=== PATIENT | female | born 1975 | race Caucasian/White ===

== ENCOUNTER 2018-08-30 12:12 | Emergency (ER) | payer SELFPAY ==
[2018-08-30] MEDS ORDERED: Morphine 4 MG/ML VIAL ONE (12:59)
--- NOTE | 2018-08-30 13:13 | RAD ---
RIGHT ELBOW 4 VIEWS: Date: 08/30/18 HISTORY: Fall. COMPARISON: None. FINDINGS: There is a fracture of the radial head and neck involving approximately 30% of the articular surface with 2 mm depression. Large joint effusion. IMPRESSION: Radial head and neck fracture involving lateral margin of the radial head, 30% articular surface invo lvement with 2 mm depression. POS: [facility]
--- NOTE | 2018-08-30 15:10 | RAD ---
LEFT WRIST RADIOGRAPHS THREE VIEWS: Date: 08-30-18 Provided Clinical History: Left wrist pain status post injury. FINDINGS: Overlying splint material is in place, limiting evaluation. There is no evidence for fracture or othe r acute osseous abnormality. If there is persistent clinical concern, conservative management and fol low up imaging are advised. IMPRESSION: As above. POS: [facility]
== END 2018-08-30 14:00 | disposition home or self-care (01) ==
LOC: SCSER 12:12
DX: S52.121A Displaced fracture of head of right radius, initial encounter for closed fracture (principal); S52.131A Displaced fracture of neck of right radius, initial encounter for closed fracture; W01.0XXA Fall on same level from slipping, tripping and stumbling without subsequent striking against object, initial encounter
CPT/HCPCS: 29105; 96372; J2270